=== PATIENT | female | born 1965 | race Caucasian/White ===

== ENCOUNTER → 2017-08-28 | Day surgery (SDC) | payer OTHER ==
[~2017-08-28] VITALS: Ht 165.1 cm; Wt 76.7 kg
[~2017-08-28] MED LIST: AUGMENTIN 875-1 EACH PO; EYE DROPS ADVAN15 ML OU; FEXOFENADINE H180 MG PO; MULTI-VITAMIN1 EACH PO; NASONEX17 GM NASB; PROAIR HFA8.5 GM INH; PROBIOTIC1 EACH PO; VITAMIN D1000 UNIT PO
--- NOTE | 2017-08-28 12:08 | MAMMOGRAPHY REPORT ---
EXAMINATION: MM GUIDED NEEDLE LOCALIZATION BREAST, RIGHT CLINICAL INFORMATION: Right breast LCIS with necrosis. COMPARISON: Outside mammograms dated 05/21/2017, 05/13/2017, 05/13/2017. TECHNIQUE NEEDLE LOC: Proper informed consent is obtained from the patient after discussion of the procedure, potential risks and complications, and alternatives including declining the procedure today. Patient was given an opportunity for questions. The patient appeared to understand. The patient consented to the procedure and signed the consent form. GUIDANCE: Digital mammography. APPROACH: Superior TARGET: Coil-shaped marker clip in the central/periareolar 12:00 position of the right breast ANESTHESIA: 10 mL Xylocaine 2%. LOCALIZATION MARKER: Zanbato 7 cm needle localization system. The skin was prepped and local anesthesia administered. The needle was positioned and position assessed with mammography. The wire was hooked into position. The patient tolerated the procedure well and had no immediate complication. Diagram was marked for the surgeon. IMPRESSION: Status post right breast needle localization with wire hooked into position. The target is located around the distal thick thin junction of the wire, 6 cm deep to the skin with 12 cm of the wire remaining external to the skin.
--- NOTE | 2017-08-28 15:11 | Operative Report ---
Operative/Inv Procedure Report Surgery Date: 08/28/17 Name of Procedure: Right rest biopsy with wire localization and left breast cyst aspiration Pre-Operative Diagnosis: Left breast cyst, right sided LCIS with necrosis Post-Operative Diagnosis: Same Estimated Blood Loss: less than 50ml Surgeon/Maritime Guard: Linh Quiroz MD Anesthesia: local monitored anesthesi Specimens: Right breast biopsy Operative/Procedure Note Note: Patient status post a stereotactic biopsy showing LCIS with necrosis and residual calcifications. Excision is recommended. She also has symptomatic left breast cysts. She is brought to the operating room on 08/28/2017 and placed on the table and under anesthesia. The left breast was approached first. A cyst in the lower aspect of the breast was identified at 5:00 and aspirated. The cyst collapsed and there was minimal fluid. The right breast was then prepped and draped in a sterile fashion using ChloraPrep. 2 g of Ancef was given. The wire localization was approached at the extreme upper aspect of the breast at 12:00. A periareolar incision was approached. Incision was made after local anesthesia of lidocaine and Marcaine mix was given and lid retractors were used to dissect up to the wire. The wire was brought into the incision and the air concern was grasped using Allis clamp and dissected sharply using scalpel. The specimen was removed and marked for incisions margin map. Intraoperative x-ray confirmed the presence of the clip and the calcifications in specimen. Hemostasis achieved using electrocautery. Deep tissue was proximal made using interrupted Vicryl sutures and skin was closed using running ice and subcutaneous color stitch. Steri-Strips and sterile dressings were applied and patient was transferred to the recovery room in satisfactory condition having tolerated the procedure well.
--- NOTE | 2017-08-28 17:04 | MAMMOGRAPHY REPORT ---
EXAMINATION: MM NEEDLE LOCALIZATION SPECIMEN FROM THE BREAST, RIGHT CLINICAL INDICATION: Right breast LCIS. Specimen radiograph. COMPARISON: Needle localization films from earlier today. TECHNIQUE: Single radiograph of the specimen was obtained. FINDINGS: The radiograph of the excised surgical specimen shows that the hookwire is delivered intact and the marker clip and calcifications are identified in the specimen. IMPRESSION: Satisfactory excision of the targeted lesion. These findings were communicated to the surgeon in the OR at the time of specimen radiography.
== END ==
LOC: STS 01:01 → CBW.IIU 08:30 → STS 08:30 → CBW.MAMMO 09:00
DX: C50.811 Malignant neoplasm of overlapping sites of right female breast (principal); N60.02 Solitary cyst of left breast; N80.9 Endometriosis, unspecified; G44.209 Tension-type headache, unspecified, not intractable
CPT/HCPCS: 81025; J0690; J2001; J2250; J3490

== ENCOUNTER → 2017-09-11 | Day surgery (SDC) | payer OTHER ==
[~2017-09-11] VITALS: Ht 165.1 cm; Wt 74.8 kg
[~2017-09-11] MED LIST changes: +CIPRO500 M1 PO; +[UNRECOGNIZED DRUG - OTHER] PO
--- NOTE | 2017-09-11 14:28 | NUCLEAR MEDICINE REPORT ---
EXAMINATION: LYMPHOSCINTIGRAPHY CLINICAL INFORMATION: Right breast cancer, sentinel node localization. COMPARISON: None. TECHNIQUE: A total of 1.1 mCi technetium 99m Lymphoseek was injected in divided doses around the right areola by RENY Thomson. Images of the right breast and axilla in the anterior, ANTHONY, and right lateral projections were obtained with simultaneous visualization of the body silhouette using a cobalt flood source, with the patient positioned between the flood source and the gamma camera. FINDINGS: A sentinal node there is well visualized in the right axilla. Several second echelon nodes are visualized in the right axilla. IMPRESSION: A sentinal node in the right axilla is well visualized.
--- NOTE | 2017-09-11 14:51 | Operative Report ---
Operative/Inv Procedure Report Surgery Date: 09/11/17 Name of Procedure: Right [place] lymph node biopsy Pre-Operative Diagnosis: Right breast cancer Post-Operative Diagnosis: Same Estimated Blood Loss: less than 50ml Surgeon/Home Care Attendant: Linh Quiroz MD Anesthesia: local monitored anesthesi Specimens: [place] lymph node 2 Operative/Procedure Note Note: Patient is status post an excisional biopsy. Pathology revealed a 2 mm invasive breast cancer. She is brought for sentinel lymph node biopsy. Preoperative lymphoscintigraphy were performed and the films reviewed. She is brought to the operating room and anesthesia was administered. 2 g of Ancef was given in the right breast is prepped and draped in a sterile fashion using ChloraPrep. 3 mL of methylene blue diluted with 2 mL of saline was injected in the retroareolar fashion. Local anesthesia 1% lidocaine mixed half percent Marcaine was given and a transverse incision was made in the lower axilla. Clavipectoral fascia was entered and the axilla was explored. There was a hot, blue lymph node with counts to 30,000 was identified and excised. The axilla was further explored and an additional hot lymph node was identified with counts to 500. No other hot, blue, or palpable lymph nodes identified and the axilla. Hemostasis was achieved using electrocautery. Clavipectoral fascia was closed using interrupted Vicryl sutures. Monocryl was used to close the skin. Steri-Strips and sterile dressings were applied and patient was transferred to recovery room in satisfactory condition having tolerated the procedure well.
== END ==
LOC: STS 01:08
DX: C50.911 Malignant neoplasm of unspecified site of right female breast (principal); G44.209 Tension-type headache, unspecified, not intractable
CPT/HCPCS: 81025; A9520; J0131; J0690; J1100; J1885; J2250; J2405; J3490; Q9968